=== PATIENT | female | born 1980 | race Hispanic/Latino ===

== ENCOUNTER 2018-11-05 16:51 | Emergency (ER) | payer SELFPAY ==
[2018-11-05] MEDS ORDERED: NACL 0.9% 1000 ML 1,000 ML IV ONE (17:02)
--- NOTE | 2018-11-05 17:10 | Emergency Department Report ---
History of Present Illness - General Chief Complaint: Overdose Stated Complaint: POSS OVERDOSE Time Seen by Provider: 11/05/18 17:02 - History of Present Illness Initial Comments: Patient is a 38 years old female, unknown to me. Patient brought to the emergency room via private vehicle by her friends who drove the patient and s tated that she overdosed on Xanax. Patient is obtunded but responding to some questions. Patient stated that she took 6 tablets of Xanax. Patient stated that she is depressed and she wanted to hurt herself. Patient oxygen saturation is 100% on room air on arrival. Blood pressure is stable and respiratory rate is 18/m. Patient is unable to provide more history. MD Complaint: intentional overdose -: unknown Intent: suicide attempt How Overdose Was Discovered: family/friend present Associated Symptoms: depression Treatments Prior to Arrival: none - Related Data Home Medications Medication Instructions Recorded Confirmed Last Taken Unobtainable 11/05/18 11/05/18 Unknown Allergies Allergy/AdvReac Type Severity Reaction Status Date / Time No Known Allergies Allergy Unverified 11/05/18 18:53 ED Review of Systems ROS: Stated complaint: POSS OVERDOSE Other details as noted in HPI Comment: Unobtainable due to pts medical conditions ED Past Medical Hx - Past Medical History Hx Psychiatric Treatment: Yes (Depression) - Medications Home Medications: Home Medications Medication Instructions Recorded Confirmed Last Taken Type Unobtainable 11/05/18 11/05/18 Unknown History ED Physical Exam - General Limitations: Altered Mental Status General appearance: obtunded - Head Head exam: Present: atraumatic, normocephalic, normal inspection - Eye Eye exam: Present: normal appearance Pupils: Present: miosis - ENT ENT exam: Present: normal exam, normal orophraynx, mucous membranes moist - Neck Neck exam: Present: normal inspection, full ROM. Absent: tenderness, meningismus, lymphadenopathy, thyromegaly - Respiratory Respiratory exam: Present: normal lung sounds bilaterally. Absent: respiratory distress, wheezes, rales, rhonchi, stridor, chest wall tenderness, accessory muscle use, decreased breath sounds, prolonged expiratory - Cardiovascular Cardiovascular Exam: Present: regular rate, normal rhythm, normal heart sounds - GI/Abdominal GI/Abdominal exam: Present: soft, normal bowel sounds. Absent: distended, tenderness, guarding, rebound, rigid, organomegaly, mass, bruit, pulsatile mass, hernia - Extremities Exam Extremities exam: Present: normal inspection, full ROM, normal capillary refill. Absent: tenderness, pedal edema - Back Exam Back exam: Present: normal inspection, full ROM. Absent: tenderness, CVA tenderness (R), CVA tenderness (L), muscle spasm, paraspinal tenderness, vertebral tenderness - Neurological Exam Neurological exam: Present: alert, altered - Psychiatric Psychiatric exam: Present: depressed, suicidal ideation - Skin Skin exam: Present: warm, intact, normal color ED Course Vital Signs 11/05/18 11/05/18 11/05/18 17:05 19:01 19:15 Temperature 97 F L Pulse Rate 72 69 63 Respiratory 16 15 14 Rate Blood Pressure 130/86 117/78 117/78 O2 Sat by Pulse 100 100 100 Oximetry 11/05/18 11/05/18 11/05/18 19:30 19:45 20:00 Temperature Pulse Rate 64 69 73 Respiratory 13 16 17 Rate Blood Pressure 128/83 128/83 108/80 O2 Sat by Pulse 100 100 100 Oximetry 11/05/18 11/05/18 11/05/18 20:03 20:15 20:30 Temperature Pulse Rate 75 75 Respiratory 16 18 16 Rate Blood Pressure 108/80 122/82 O2 Sat by Pulse 100 100 Oximetry 11/05/18 11/05/18 11/05/18 20:45 21:00 21:15 Temperature Pulse Rate 86 71 67 Respiratory 13 16 15 Rate Blood Pressure 122/82 131/88 131/88 O2 Sat by Pulse 100 100 100 Oximetry 11/05/18 11/05/18 11/05/18 21:30 21:45 22:00 Temperature Pulse Rate 69 70 63 Respiratory 14 13 13 Rate Blood Pressure 128/83 128/83 131/83 O2 Sat by Pulse 100 100 100 Oximetry 11/05/18 11/05/18 11/05/18 22:15 22:20 22:30 Temperature Pulse Rate 65 67 67 Respiratory 14 14 13 Rate Blood Pressure 131/83 131/83 118/76 O2 Sat by Pulse 100 100 100 Oximetry 11/05/18 11/05/18 11/05/18 22:51 23:01 23:30 Temperature Pulse Rate 70 83 81 Respiratory 17 15 16 Rate Blood Pressure 118/76 131/80 121/83 O2 Sat by Pulse 100 100 100 Oximetry 11/06/18 11/06/18 00:00 00:30 Temperature Pulse Rate 67 72 Respiratory 16 11 L Rate Blood Pressure 123/70 115/73 O2 Sat by Pulse 100 Oximetry - Reevaluation(s) Reevaluation #1: 11/05/18 20:24 Patient evaluated by me multiple times. Patient is still obtunded but responds to painful stimuli and sometimes to voice. Patient oxygen saturation is 100% on room air with stable vital signs. ED Medical Decision Making - Lab Data Result diagrams: 11/05/18 16:50 11/05/18 16:50 - Medical Decision Making Patient is a 38 years old female, unknown to me. Patient brought to the emergency room via private vehicle by her friends who drove the patient and stated that she overdosed on Xanax. Patient is obtunded but responding to some questions. Patient stated that she took 6 tablets of Xanax. Patient stated that she is depressed and she wanted to hurt herself. Patient oxygen saturation is 100% on room air on arrival. Blood pressure is stable and respiratory rate is 18/m. Patient now is alert, oriented 3, in no acute distress. Patient drug screen is positive for methamphetamine and marijuana. Patient is medically clear to be evaluated for possible psychiatric admission. Critical Care Time: Yes Critical care time in (mins) excluding proc time.: 30 Critical care attestation.: If time is entered above; I have spent that time in minutes in the direct care of this critically ill patient, excluding procedure time. ED Disposition Clinical Impression: Overdose, Suicide attempt, Methamphetamine intoxication Disposition: [id number]/[id number] PS[facility] HOSP/PSY UNIT Is pt being admited?: No Condition: Stable Referrals: PRIMARY CARE, [Primary Care Provider] - 3-5 Days
[2018-11-05 18:05] LABS: Basophils # (Auto) 0.1 K/mm3 (0.0-0.1); Basophils % (Auto) 1.3 % (0.0-1.8); Eosinophils % (Auto) 0.6 % (0.0-4.3); Hematocrit 36.4 % (30.3-42.9); Hemoglobin 12.2 gm/dl (10.1-14.3); Lymphocytes # (Auto) 1.4 K/mm3 (1.2-5.4); Lymphocytes % (Auto) 25.7 % (13.4-35.0); Mean Corpuscular HGB Conc 34 % (30-34); Mean Corpuscular Volume 99 fl (79-97); Monocytes # (Auto) 0.5 K/mm3 (0.0-0.8); Monocytes % (Auto) 8.7 % (0.0-7.3); Platelet Count 324 K/mm3 (140-440); Red Blood Count 3.67 M/mm3 (3.65-5.03)
[2018-11-05 18:07] LABS: Bilirubin,Urine NEG (Negative); Blood,Urine SM (Negative); Color,Urine Yellow (Yellow); Mucus,Urine FEW /HPF; Protein,Urine <15 mg/dL mg/dL (Negative); Urobilinogen,Urine < 2.0 mg/dL (<2.0)
[2018-11-05 18:13] LABS: Benzodiazepines Screen,Urine PRESUMPTIVE NEGATIVE; Cocaine Screen,Urine PRESUMPTIVE NEGATIVE; Methadone Screen,Urine PRESUMPTIVE NEGATIVE; Opiate Screen,Urine PRESUMPTIVE NEGATIVE
[2018-11-05 18:13] LABS: INR 0.9 (0.87-1.13)
[2018-11-05 19:17] LABS: Alanine Aminotransferase 26 units/L (7-56); Albumin 4.1 g/dL (3.9-5); BUN/Creatinine Ratio 18; Blood Urea Nitrogen 16 mg/dL (7-17); Hemolysis Index 12
[2018-11-05 19:18] LABS: Amphetamine Screen,Urine PRESUMPTIVE POSITIVE; Cannabinoid Screen,Urine PRESUMPTIVE POSITIVE
[2018-11-05 19:18] LABS: Bilirubin,Direct < 0.2 mg/dL (0-0.2)
--- NOTE | 2018-11-06 13:10 | Consultation ---
History of Present Illness - Reason for Consult Consult date: 11/06/18 Reason for consult: Mental Health Evaluation Requesting physician: NEGRITA MARI - Chief Complaint Chief complaint: "I don't know what happened" - History of Present Psychiatric Illness 38 years old female brought to the ER by friends for overdosing on Xanax. Today the patient is irritable during the assessment. She could not state why she brought to the hospital. She became belligerent and starting cursing when asked questions about her mental health. The interview had to be terminated because of the patient's behavior. Medications and Allergies Allergies Allergy/AdvReac Type Severity Reaction Status Date / Time No Known Allergies Allergy Unverified 11/05/18 18:53 Home Medications Medication Instructions Recorded Confirmed Last Taken Type Unobtainable 11/05/18 11/05/18 Unknown History Past psychiatric history - Past Medical History Past Medical History: No medical history Past Surgical History: No surgical history - past Psychiatric treatment and history psychiatric treatment history: Unable to obtain a psy hx and fam psy hx. - Social History Social history: Lives alone Mental Status Exam - Vital signs Last Vital Signs Temp 97.6 F 11/06/18 08:16 Pulse 81 11/06/18 08:16 Resp 18 11/06/18 08:17 BP 114/70 11/06/18 08:16 Pulse Ox 92 11/06/18 08:17 - Exam Narrative exam: MSE: Appearance: in a hospital gown Behavior: regular eye contact Speech: regular rate and tone Mood: irritable Affect: congruent to mood Thought Process: unable to assess Thought Content: unable to assess Motor Activity: lying in bed Cognition: A/O x3 Insight: unable to assess Judgment: unable to assess Results Result Diagrams: 11/05/18 16:50 11/05/18 16:50 Abnormal lab results 11/05/18 11/05/18 11/05/18 Range/Units 16:50 16:50 16:50 MCV 99 H (79-97) fl MCH 33 H (28-32) pg RDW 13.0 L (13.2-15.2) % [place] % (Auto) 8.7 H (0.0-7.3) % Urine WBC (Auto) (0.0-6.0) /HPF Salicylates < 0.3 L (2.8-20.0) mg/dL Acetaminophen < 5.0 L (10.0-30.0) ug/mL 11/05/18 Range/Units Unknown MCV (79-97) fl MCH (28-32) pg RDW (13.2-15.2) % [place] % (Auto) (0.0-7.3) % Urine WBC (Auto) 16.0 H (0.0-6.0) /HPF Salicylates (2.8-20.0) mg/dL Acetaminophen (10.0-30.0) ug/mL All other labs normal. Assessment and Plan Assessment and plan: Impression: Possible Overdose. Today the patient is irritable during the asses sment. Positive for amphetamines and marijuana. Recommendation/Plan: Continue 1013 and reassess the patient in 24 hours. Dispo: Once the patient is reassess, proper dispo will be determined. Will staff with Dr Marj Woods.
[2018-11-06 21:47] VITALS: BP 131/79
--- NOTE | 2018-11-08 15:06 | Progress Note ---
Subjective - Reason for Consult Consult date: 11/08/18 Reason for consult: Psychiatric Follow-up Evaluation - Chief Complaint Chief complaint: Patient not seen. Patient not on current list. Mental Status Exam - Vital signs Last Vital Signs Temp 98.2 F 11/06/18 19:00 Pulse 78 11/06/18 19:00 Resp 18 11/06/18 19:00 BP 131/79 11/06/18 19:00 Pulse Ox 100 11/06/18 19:00
== END 2018-11-06 21:49 ==
LOC: ED 16:51 → EEVIPCON 16:51 → ED 11-06 21:49
DX: T42.4X2A Poisoning by benzodiazepines, intentional self-harm, initial encounter (principal); F15.129 Other stimulant abuse with intoxication, unspecified; F32.9 Major depressive disorder, single episode, unspecified; Y92.89 Other specified places as the place of occurrence of the external cause
CPT/HCPCS: 36415; 80048; 80076; 80307; 81001; 85025; 85610; 93005; 93010; 99291; G0480; 80320